=== PATIENT | female | born 1970 | race Caucasian/White ===

== ENCOUNTER 2018-10-21 22:40 | Emergency (ER) | payer BC ==
[~2018-10-21] VITALS: Ht 165.1 cm; Wt 120.7 kg
--- NOTE | 2018-10-21 23:02 | NUR ---
MICHAEL FROM HOME. AAOX4. NAD, BRAETHING EVEN AND UNLABORED. C/O NAUSEA, DIZZYNESS-ROOM SPINNING, AND WEAKNESS- REPORTS HAVING DIFFICULTY AMBULATING. PT REPORTS THAT SHE WAS JUST AT [facility] 2 HOURS AGO WHEN IT HAPPENED. PT TO ER BED 9. AWAITING MD FOR NATHEN.
--- NOTE | 2018-10-21 23:20 | NUR ---
AT BEDSIDE FOR EVAL
--- NOTE | 2018-10-21 23:45 | NUR ---
IV LINE OBTAINED ON LEFT HAND 20G. LAB DRAWN AND GIVEN TO FISH PROTECTOR AT BEDSIDE
[2018-10-21 23:49] LABS: BASOPHILS % (AUTO) 0.4 % (0.0-2.0); HEMATOCRIT 40 % (33-45); HEMOGLOBIN 13.1 g/dL (11.5-14.8); LYMPHOCYTES # (AUTO) 1.9 /CMM (0.8-4.8); LYMPHOCYTES % (AUTO) 18.5 % (20.0-44.0); MEAN CORPUSCULAR HGB CONC 33 g/dl (31.0-36.0); MEAN CORPUSCULAR VOLUME 78 fL (82-100); MONOCYTES # (AUTO) 0.4 /CMM (0.1-1.30); MONOCYTES % (AUTO) 3.7 % (2.0-12.0); NEUTROPHILS # (AUTO) 7.9 /CMM (1.8-8.9); NEUTROPHILS % (AUTO) 76.4 % (43.0-81.0); PLATELET COUNT (AUTO) 435 /CMM (150-450); WHITE BLOOD COUNT (AUTO) 10.4 K/uL (4.3-11.0)
[2018-10-21] MEDS ORDERED: MECLIZINE HCL 12.5 MG TABLET ONE (23:50)
[2018-10-21] MEDS ORDERED: ONDANSETRON 4 MG TAB.RAPDIS ONE (23:50)
[2018-10-21 23:57] LABS: CALCIUM, SERUM 9.2 mg/dL (8.5-10.1); CREATININE 0.8 mg/dL (0.6-1.3); POTASSIUM 3.8 mmol/L (3.5-5.1)
[2018-10-22] MEDS ORDERED: MECLIZINE HCL 25 MG TABLET PO ONE
[2018-10-22] MEDS ORDERED: ONDANSETRON HCL/PF 4 MG/2 ML VIAL IVP ONE
[2018-10-22 00:03] LABS: ALBUMIN 3.5 g/dL (3.4-5.0); BILIRUBIN,TOTAL 0.3 mg/dL (0.2-1.0); TOTAL PROTEIN, SERUM 7.8 g/dL (6.4-8.2)
--- NOTE | 2018-10-22 00:20 | NUR ---
2ND IV LINE OBTAINED ON L AC 20G FOR CTA OF CAROTID. PT UNABLE TOVOID AT THIS THIS FOR UA. MD MADE AWARE. UA IF FOR PER MD. OK NOT TO GIVE URINE IF PT UNABLE . PT SIGNED WAIVER ON FILE.
[2018-10-22] MEDS ORDERED: IOHEXOL-350 100 ML VIAL IV ONE (00:27)
[2018-10-22] MEDS ORDERED: IV NS 0.9% 250 ML IV ONE (00:27)
[2018-10-22] MEDS ORDERED: CT SWABBABLE VALVE TRANS SET 1 EA INFUS.SET MC ONE (00:28)
--- NOTE | 2018-10-22 00:35 | NUR ---
PT TO CT
[2018-10-22] MEDS ORDERED: SUMATRIPTAN SUCCINATE 25 MG TABLET PO ONE (01:30)
--- NOTE | 2018-10-22 01:33 | NUR ---
CALLED YASIHRA RE: NECK CTA READ
[2018-10-22] MEDS ORDERED: SUMATRIPTAN SUCCINATE 25 MG TABLET ONE (01:42)
[2018-10-22] MEDS ORDERED: ONDANSETRON 4 MG TAB.RAPDIS ONE (02:27)
--- NOTE | 2018-10-22 02:30 | NUR ---
Pt ambulated around the unit to see if patient will tolerate ambulation. Pt tolerated ambulation w/ min assist. pt verbalized that her dizziness is mush better compared to when she arrived.
[2018-10-22 02:47] VITALS: BP 139/77
--- NOTE | 2018-10-22 02:49 | NUR ---
Patient discharged to home in stable condition. Written and verbal after care instructions given. Patient verbalizes understanding of instruction.IV removed. Catheter intact and site benign. Pressure and 4x4 applied to site. No bleeding noted. Pt ambulatory with min assist. Pt is being p/u by her friend.
--- NOTE | 2018-10-22 02:49 | NUR ---
Note vivi in ED - 10/22/18 at 0301 by TRISTNA Patient discharged to home in stable condition. Written and verbal after care instructions given. Patient verbalizes understanding of instruction.IV removed. Catheter intact and site benign. Pressure and 4x4 applied to site. No bleeding noted. Pt ambulatory with a steady gait
[2018-10-22] MEDS ORDERED: ONDANSETRON HCL 4 MG/5 ML SOLUTION PO ONE (03:00)
== END 2018-10-22 03:01 | disposition home or self-care (01) ==
LOC: ER 22:45
DX: R42 Dizziness and giddiness (principal); M54.2 Cervicalgia; G89.29 Other chronic pain; M54.9 Dorsalgia, unspecified; R91.1 Solitary pulmonary nodule; G43.909 Migraine, unspecified, not intractable, without status migrainosus; F32.9 Major depressive disorder, single episode, unspecified; I10 Essential (primary) hypertension; F90.9 Attention-deficit hyperactivity disorder, unspecified type; E78.5 Hyperlipidemia, unspecified; G35 Multiple sclerosis; G47.30 Sleep apnea, unspecified; R94.31 Abnormal electrocardiogram [ECG] [EKG]; Z98.84 Bariatric surgery status; Z90.89 Acquired absence of other organs; Z88.2 Allergy status to sulfonamides; Z88.0 Allergy status to penicillin; Z88.8 Allergy status to other drugs, medicaments and biological substances
CPT/HCPCS: 36415; 70498; 80048; 80076; 83690; 84702; 85025; 93005; 96374; 99284; J7050; J8597; Q0162 ×2; Q9967

== ENCOUNTER 2018-12-21 13:52 | Emergency (ER) | payer BC ==
[~2018-12-21] VITALS: Ht 162.6 cm; Wt 116.6 kg
--- NOTE | 2018-12-21 14:10 | NUR ---
C/C MS FLARE UP, (NEUROLOGIST) TOLD HER TO GO TO ER FOR SOLUMEDROL IV, HAVING WEAKNESS AND DIFFICULTY WALKING x 3 DAYS. AA/OX4, NO DISTRESS NOTED. BREATHING EVEN AND UNLABORED, NO SOB NOTED. NEEDS ATTENDED, WAITING FOR MD SENA.
[2018-12-21 14:51] LABS: BASOPHILS % (AUTO) 0.5 % (0.0-2.0); EOSINOPHILS % (AUTO) 2.3 % (0.0-6.0); HEMATOCRIT 41 % (33-45); HEMOGLOBIN 13.3 g/dL (11.5-14.8); LYMPHOCYTES # (AUTO) 1.6 /CMM (0.8-4.8); LYMPHOCYTES % (AUTO) 17.6 % (20.0-44.0); MEAN CORPUSCULAR HGB CONC 33 g/dl (31.0-36.0); MEAN CORPUSCULAR VOLUME 77 fL (82-100); MONOCYTES # (AUTO) 0.5 /CMM (0.1-1.30); MONOCYTES % (AUTO) 5.4 % (2.0-12.0); NEUTROPHILS # (AUTO) 6.6 /CMM (1.8-8.9); NEUTROPHILS % (AUTO) 74.2 % (43.0-81.0); PLATELET COUNT (AUTO) 432 /CMM (150-450); RED BLOOD CELL COUNT(AUTO) 5.32 MIL/uL (4.0-5.2); WHITE BLOOD COUNT (AUTO) 8.9 K/uL (4.3-11.0)
--- NOTE | 2018-12-21 15:00 | NUR ---
PATIENT STATED SHE'S UNABLE TO GIVE URINE SAMPLE AT THIS TIME. EXPLAINED RISKS AND BENEFITS. MD AWARE.
[2018-12-21 15:04] LABS: CALCIUM, SERUM 9.3 mg/dL (8.5-10.1); CREATININE 0.9 mg/dL (0.6-1.3)
[2018-12-21] MEDS ORDERED: methylPREDNISolone SOD SUCC 125 MG/2ML VIAL ONE (15:12)
[2018-12-21] MEDS ORDERED: methylPREDNISolone SOD SUCC 125 MG/2ML VIAL IV ONE (15:30)
--- NOTE | 2018-12-21 15:48 | NUR ---
IV removed. Catheter intact and site benign. Pressure and 4x4 applied to site. No bleeding noted. Patient discharged to home in stable condition. Written and verbal after care instructions given. Patient verbalizes understanding of instruction.
[2018-12-21 15:49] VITALS: BP 131/67
== END 2018-12-21 15:58 | disposition home or self-care (01) ==
LOC: ER 13:57
DX: R53.1 Weakness (principal); G35 Multiple sclerosis; E78.5 Hyperlipidemia, unspecified; I10 Essential (primary) hypertension; G43.909 Migraine, unspecified, not intractable, without status migrainosus; F32.9 Major depressive disorder, single episode, unspecified; F90.9 Attention-deficit hyperactivity disorder, unspecified type; E66.9 Obesity, unspecified; Z98.890 Other specified postprocedural states; Z90.89 Acquired absence of other organs; Z88.2 Allergy status to sulfonamides; Z88.0 Allergy status to penicillin; Z60.2 Problems related to living alone; Z88.8 Allergy status to other drugs, medicaments and biological substances
CPT/HCPCS: 36415; 80048; 82962; 85025; 96374; 99283; J2930

== ENCOUNTER 2021-11-02 15:04 | Inpatient (IN) | payer BC ==
[~2021-11-02] VITALS: Ht 162.6 cm; Wt 145.1 kg
--- NOTE | 2021-11-02 15:19 | NUR ---
DR BENSON AT BEDSIDE FOR EVAL
[2021-11-02] MEDS ORDERED: MORPHINE SULFATE INJ 2 MG/ML DISP.SYRIN IV ONE ×2 (15:30→20:30)
[2021-11-02] MEDS ORDERED: LORAZEPAM INJ 2 MG/ML VIAL IV ONE ×2 (15:30→20:30)
[2021-11-02] MEDS ORDERED: IV NS 0.9% 1,000 ML BAG IV ONE (15:30)
--- NOTE | 2021-11-02 15:35 | NUR ---
PAGED DR GARCIA (THE PATIENT`S SURGEON). WAITING FOR CALL BACK.
--- NOTE | 2021-11-02 15:40 | NUR ---
[id number] C/O ABDOMINAL PAIN, NAUSEA AND VOMITING ALSO C/O CHEST PAIN SINCE YESTERDAY, "GASTRIC BYPASS SURGERY YESTERDAY AT [facility] STA [facility]". PT IS A&OX4, BREATHING EVEN AND UNLABORED ON RA. PT TRANSFERRED FROM [facility]EL TO [facility]AS [facility]QU[facility]EL VIA DRAW SHEET.
--- NOTE | 2021-11-02 15:49 | NUR ---
THE PATIENT REFUSED IV TO BE STARTED ANYWHERE EXCEPT HANDS. ATTEMPTED TO START LINE ON THE RIGHT HAND, HOWEVER, UNSUCCESSFUL WITH IV INSERTION ON RIGHT HAND. THE PATIENT DID NOT ALLOW ANOTHER ATTEMPT DESPITE EXPLAINING RISKS AND BENEFITS.
--- NOTE | 2021-11-02 15:50 | NUR ---
RN ATTEMPTED TO START IV, PT IS REFUSING.
[2021-11-02] MEDS ORDERED: MORPHINE SULFATE INJ 4 MG/ML DISP.SYRIN ONE (15:56)
[2021-11-02] MEDS ORDERED: LORAZEPAM INJ 2 MG/ML VIAL ONE ×2 (15:56→20:18)
[2021-11-02] MEDS ORDERED: PANTOPRAZOLE 40 MG VIAL IV ONE (16:00)
--- NOTE | 2021-11-02 16:00 | NUR ---
DR. MENDOZA COVERING SPEAKING WITH DR. BENSON
[2021-11-02 16:12] LABS: BASOPHILS # (AUTO) 0.1 K/uL (0.0-0.2); BASOPHILS % (AUTO) 0.8 % (0.0-2.0); EOSINOPHILS % (AUTO) 0.8 % (0.0-6.0); HEMATOCRIT 36 % (33-45); HEMOGLOBIN 11.5 g/dL (11.5-14.8); LYMPHOCYTES # (AUTO) 1.6 K/uL (0.8-4.8); LYMPHOCYTES % (AUTO) 16.2 % (20.0-44.0); MEAN CORPUSCULAR HGB CONC 32 g/dl (31.0-36.0); MEAN CORPUSCULAR VOLUME 76 fL (82-100); MONOCYTES # (AUTO) 0.6 K/uL (0.1-1.30); MONOCYTES % (AUTO) 5.9 % (2.0-12.0); NEUTROPHILS # (AUTO) 7.5 K/uL (1.8-8.9); NEUTROPHILS % (AUTO) 76.3 % (43.0-81.0); PLATELET COUNT (AUTO) 413 K/uL (150-450); RED BLOOD CELL COUNT(AUTO) 4.68 MIL/uL (4.0-5.2); WHITE BLOOD COUNT (AUTO) 9.8 K/uL (4.3-11.0)
--- NOTE | 2021-11-02 16:16 | NUR ---
CALLED [phone] APOORVA HAWK WILL BE PAGED.
--- NOTE | 2021-11-02 16:22 | NUR ---
DR. HAWK SPEAKING WITH SRUTHI LIRA.
[2021-11-02 16:33] LABS: ALBUMIN 3.2 g/dL (3.4-5.0); BILIRUBIN,DIRECT 0.1 mg/dL (0.0-0.2); BILIRUBIN,TOTAL 0.4 mg/dL (0.2-1.0); CALCIUM, SERUM 8.7 mg/dL (8.5-10.1); CREATININE 0.9 mg/dL (0.6-1.3); POTASSIUM 3.6 mmol/L (3.5-5.1); TOTAL PROTEIN, SERUM 7.1 g/dL (6.4-8.2)
--- NOTE | 2021-11-02 16:55 | NUR ---
PO CHALLENGED PER DR BENSON, TOLERATED WELL, AWARE
[2021-11-02] MEDS ORDERED: ONDA4TAB5 PO (17:52)
--- NOTE | 2021-11-02 18:23 | NUR ---
COVID SWAB DONE AND SENT TO LAB
--- NOTE | 2021-11-02 19:05 | NUR ---
MOVE SHEET SUBMITTED.
--- NOTE | 2021-11-02 19:20 | NUR ---
SEEN PATIENT AAOX4 WITH IV CANNULA G20 ON RIGHT ARM. -SOB NOTED.
--- NOTE | 2021-11-02 19:31 | NUR ---
[facility] CALLED CENTER DIRECTOR PAGED.
[2021-11-02] MEDS ORDERED: ACETAMINOPHEN 325 MG TABLET PO PRN (20:30)
[2021-11-02] MEDS ORDERED: ZOLPIDEM TARTRATE 5 MG TABLET PO PRN (20:30)
[2021-11-02] MEDS ORDERED: IV NS 0.9% 1,000 ML IV ONE (20:30)
[2021-11-02] MEDS ORDERED: ONDANSETRON HCL/PF 4 MG/2 ML VIAL IVP PRN (20:30)
[2021-11-02] MEDS ORDERED: MAGNESIUM HYDROXIDE 30 ML UDC PO PRN (20:30)
[2021-11-02] MEDS ORDERED: Z GUARD REMEDY 4 OZ OINT TP PRN (20:30)
[2021-11-02] MEDS ORDERED: MAG HYDROX/AL HYDROX/SIMETH 30 ML UDC PO PRN (20:30)
--- NOTE | 2021-11-02 20:55 | NUR ---
REPORT GIVEN TO NOEMY CHA.
--- NOTE | 2021-11-02 21:00 | NUR ---
PUSHED PATIENT TO [facility]
[2021-11-02 21:08] VITALS: BP 125/62
--- NOTE | 2021-11-02 21:08 | NUR ---
RN NOTES RECEIVED PT FROM ER IN RM 328-1.AAOX4 ON RM AIR NO SIGN SOB/DISTRESS NOTED.NO COMLAINED OF PAIN/DISCOMFORT.IV ACCESS RAC G20 INTACT AND PATENT.REORIENT PT IN THE AND VERBALLY UNDERSTANDING.SAFETY MEASURED IN PLACE.BED LOCKED AND LOW POSITION.CALL LIGHT WITHIN REACH.WILL CONTINUE TO MONITOR.
[2021-11-03 02:30] VITALS: BP 125/62
[2021-11-03 06:11] LABS: BASOPHILS % (AUTO) 0.3 % (0.0-2.0); EOSINOPHILS % (AUTO) 1.3 % (0.0-6.0); HEMATOCRIT 35 % (33-45); HEMOGLOBIN 11.5 g/dL (11.5-14.8); LYMPHOCYTES # (AUTO) 0.9 K/uL (0.8-4.8); LYMPHOCYTES % (AUTO) 11.2 % (20.0-44.0); MEAN CORPUSCULAR HGB CONC 32 g/dl (31.0-36.0); MEAN CORPUSCULAR VOLUME 77 fL (82-100); MONOCYTES # (AUTO) 0.6 K/uL (0.1-1.30); NEUTROPHILS # (AUTO) 6.6 K/uL (1.8-8.9); NEUTROPHILS % (AUTO) 80.2 % (43.0-81.0); PLATELET COUNT (AUTO) 338 K/uL (150-450); RED BLOOD CELL COUNT(AUTO) 4.62 MIL/uL (4.0-5.2); WHITE BLOOD COUNT (AUTO) 8.2 K/uL (4.3-11.0)
[2021-11-03 06:32] LABS: CALCIUM, SERUM 8.5 mg/dL (8.5-10.1); CREATININE 0.7 mg/dL (0.6-1.3); MAGNESIUM 2.1 mg/dL (1.8-2.4); PHOSPHORUS 3.8 mg/dL (2.5-4.9); POTASSIUM 3.6 mmol/L (3.5-5.1)
--- NOTE | 2021-11-03 07:09 | NUR ---
RN CLOSING NOTES PATIENT IN BED AAOX4 RESTING COMFORTABLE.KETAN WELL ON RM AIR NO SIGN SOB/DISTRESS NOTED.NO COMPLAINED OF PAIN/DISCOMFORT DURING SHIFT.ALL NEEDS ATTENDED.PT ACCIDENTALLY PULL OUT IV SITE.NO BLEEDING NOTED.SAFETY MEASURED IN PLACE.CALL LIGHT WITHIN REACH.BED LOW AND LOCKED POSITION.RENEE ENDORSE TO NEXT SHIFT.
--- NOTE | 2021-11-03 07:35 | NUR ---
MS RN NOTES: RECEIVED PATIENT IN BED ASLEEP AND EASILY AROUSED WITH STIMULI, A/O X 4 AND ABLE TO MAKE NEEDS KNOWN, AFEBRILE AND ON ROOM AIR TOLERATING WELL. DENIES ANY PAIN AT THIS TIME. ON NPO AT THIS TIME. NO IV ACCESS AT THIS TIME. KEPT RESTED AND COMFORTABLE . SAFETY PRECAUTIONS MAINTAINED: BED LOCKED AND IN LOWEST POSITION, SIDE RAILS UP X 2. WILL MONITOR ACCORDINGLY.
[2021-11-03 08:00] VITALS: BP 118/59
[2021-11-03] MEDS ORDERED: RIBO100T6 PO (08:15)
[2021-11-03] MEDS ORDERED: ERGO500093 PO (08:15)
[2021-11-03] MEDS ORDERED: MELO-105 PO (08:15)
[2021-11-03] MEDS ORDERED: DIPH25TA62 PO (08:15)
[2021-11-03] MEDS ORDERED: CLOR15TA PO (08:15)
[2021-11-03] MEDS ORDERED: FERR325T23 PO (08:15)
[2021-11-03] MEDS ORDERED: LORA10TA68 PO (08:15)
[2021-11-03] MEDS ORDERED: CALC-232 PO (08:15)
[2021-11-03] MEDS ORDERED: BUPR100T13 PO (08:15)
[2021-11-03] MEDS ORDERED: MULT-447 PO (08:15)
[2021-11-03] MEDS ORDERED: PROP20TA7 PO (08:15)
[2021-11-03] MEDS ORDERED: SERT100T PO (08:15)
[2021-11-03] MEDS ORDERED: SIMV-46 PO (08:15)
--- NOTE | 2021-11-03 08:28 | NUR ---
RN NOTES: SEEN AND EXAMINED BY DR EVERETT, ORDERED MAY START CLEAR LIQUIDS. ORDERD NOTED AND CARRIED OUT.
[2021-11-03] MEDS ORDERED: CYAN-51 PO (08:30)
[2021-11-03] MEDS ORDERED: METF-440 PO (08:30)
[2021-11-03] MEDS ORDERED: TRAM50TA2 PO (08:30)
[2021-11-03] MEDS ORDERED: VALA500T40 PO (08:30)
[2021-11-03] MEDS ORDERED: OMEP20CA15 PO (08:30)
[2021-11-03] MEDS ORDERED: ATOR40TA PO (08:30)
[2021-11-03] MEDS ORDERED: GABA800T11 PO (08:30)
[2021-11-03] MEDS ORDERED: LISD70CA PO (08:30)
[2021-11-03] MEDS ORDERED: LEVO25TA7 PO (08:30)
--- NOTE | 2021-11-03 09:00 | NUR ---
RN NOTES: PATIENT ALERT AND ORIENTED X 4 AND ABLE TO MAKE NEEDS KNOWN. PATIENT HAD HER MEDS BEDSIDE, EXPLAINED THE RISK AND BENEFITS OF MEDS AT BED SIDE.
[2021-11-03] MEDS ORDERED: ACETAMINOPHEN 650 MG/20.3 ML UDC PO PRN (12:00)
--- NOTE | 2021-11-03 16:26 | NUR ---
MS DISCHARGE NOTES: PATIENT DC HOME, A/O X 4 AND ABLE TO VERBALIZED NEEDS. NO SOB OR CARDIAC DISTRESS NOTED, AFEBRILE. ON ROOM AIR AND TOLERATED WELL. COMPLETED AND SIGNED DISCHARGE FORMS. DISCHARGE INSTRUCTIONS GIVEN TO PATIENT AND VERBALIZED UNDERSTANDING, REMINDED PATIENT THAT SHE WILLCONTINUE CLEAR LIQUID, F/U WITH PCP AT [facility], IN CASE OF EMERGENCY CALL 911 OR GO TO NEAREST HOSPITAL, PATIENT VERBALIZED UNDERSTANDING.NO IV ACCESS NOTED AND REMOVED PATIENT'S IDENTIFICATION BAND. RN HELPED HER TO WHEELED HER IN HOSPITAL LOBBY, PATIENT'S MOTHER AMY WILKS PICKED UP THE PATIENT VIA PRIVATE CAR. PATIENT LEFT STABLE.
== END 2021-11-03 16:15 | disposition home or self-care (01) | DRG 394 ==
LOC: ER 15:08 → MED 20:53
PROVIDERS: ADMIT Family Medicine; ATTEND Family Medicine
DX: K95.89 Other complications of other bariatric procedure (principal); Z68.43 Body mass index [BMI] 50.0-59.9, adult; E44.1 Mild protein-calorie malnutrition; E66.2 Morbid (severe) obesity with alveolar hypoventilation; K91.0 Vomiting following gastrointestinal surgery; R10.9 Unspecified abdominal pain; I10 Essential (primary) hypertension; E88.09 Other disorders of plasma-protein metabolism, not elsewhere classified; G35 Multiple sclerosis; F90.9 Attention-deficit hyperactivity disorder, unspecified type; E78.5 Hyperlipidemia, unspecified; G47.30 Sleep apnea, unspecified; G43.909 Migraine, unspecified, not intractable, without status migrainosus; Y83.8 Other surgical procedures as the cause of abnormal reaction of the patient, or of later complication, without mention of misadventure at the time of the procedure; Y92.009 Unspecified place in unspecified non-institutional (private) residence as the place of occurrence of the external cause; F41.9 Anxiety disorder, unspecified; F32.A Depression, unspecified
CPT/HCPCS: 36415; 80048-TC; 80076-TC; 83690-TC; 83735-TC; 84100-TC; 85025-TC; C9113; C9803; G0378; J2060; J2270; J7030